=== PATIENT | female | born 1945 | race Caucasian/White ===

== ENCOUNTER 2017-03-10 10:38 | Emergency (ER) | payer MEDICARE ==
[~2017-03-10] VITALS: Ht 175.3 cm; Wt 113.2 kg
[2017-03-10] VITALS (7 sets, daily range): BP systolic 107–135; BP diastolic 72–78; PULSE 89–131; RESP 15–19; O2SAT 94–96
--- NOTE | 2017-03-10 10:47 | ED.REPORT ---
HPI-Chest Pain 40 and Over Date of Service March 10, 2017 ED Provider: Dr. Bautista Pt is a 71 year old female with a hx of afib on Warfarin, HTN and DM presenting to the ED complaining of chest pain onset 0230 this morning. Associated symptoms include palpitations, SOB, dyspnea on exertion. She reports that Dr. Lomeli , her nurse practitioner, usually tells her to take an extra dose of Flecainide when she has an episode of palpitations but she did not do that today. She states that she has had episodes of chest heaviness since 3 days ago. This episode of afib feels similar to her other previous episodes. Usually, the episodes of afib are not as close together. She states that they are usually weeks apart. The pt has been under emotional stress lately, due to packing up their home to move into a senior home. Her regular dose of Flecainide is 100mg in the morning and 100mg at night. Nursing Notes Stated Complaint: CHEST PAIN Chief Complaint: Chest pain Nursing Notes Reviewed: Yes Allergies: Coded Allergies: Tetanus and Diphtheria Toxoid (Verified Allergy, Unknown, 03/10/17) bacitracin (Verified Allergy, Unknown, 03/10/17) bacitracin zinc (Verified Allergy, Unknown, 03/10/17) gramicidin D (Verified Allergy, Unknown, 03/10/17) neomycin sulfate (Verified Allergy, Unknown, 03/10/17) polymyxin B (Verified Allergy, Unknown, 03/10/17) polymyxin B sulfate (Verified Allergy, Unknown, 03/10/17) Scheduled Flecainide Acetate (Flecainide Acetate) 150 Mg Tablet 150 MG PO BID Metoprolol Tartrate (Metoprolol Tartrate) 75 Mg Tablet 75 MG PO BID General Time Seen by MD: 10:46 Chief Complaint Chest pain Hx Obtained From: Patient Arrived By: Walk-in Sudden in Onset?: No Onset Occurred: 3 days ago Symptom Duration: Since onset Quality: Heaviness, Painful Severity: Current: Mild Severity: Maximum: Moderate Recent Healthcare: No recent doctor visit, No recent hospitalization Similar Sx Previous: Yes Past Medical History Past Medical History Paroxysmal afib on Warfarin GERD DM HTN Hypothyroidism Past Surgical History denies Social History Alcohol Use: Denies alcohol use Drug Use: Denies drug use Ambulatory Status Independent Review of Systems Respiratory: Reports: Dyspnea on exertion, Shortness of breath Cardiovascular: Reports: Chest pain, Palpitations Complete sys rev & neg: except as marked. Physical Exam Initial Vital Signs Vital Signs (First) Date Time Temp Pulse Resp B/P Pulse Ox O2 Delivery O2 Flow Rate FiO2 03/10/17 10:49 36.8 118 19 112/77 96 Room Air Initial VS: Reviewed Head / Eyes: Atraumatic, Normocephalic, PERRL ENT: Mucous membranes moist, Conjunctiva normal, No scleral icterus Neck: Supple, Non-tender, Full range of motion Extremities: Vascular intact, Neuro intact, No swelling, No tenderness Skin: Warm, Dry, No cyanosis Neurologic: Alert, Oriented, Nonfocal Psychiatric: Mood/affect normal, Behavior normal, Normal thought content General/Constitutional: Awake, Alert, No acute distress, Well appearing Respiratory / Chest: Breath sounds NL, Breath sounds = bilat, No respiratory distress, No rales, No rhonchi, No wheezing, No stridor, No chest tenderness Cardiovascular: No murmurs, No rubs Heart Rate / Rhythm: Positive: Irreg irregular rhythm, Tachycardia Interpretation & Diagnostics Lab Results Interpretation Result Diagram: 03/10/17 1139 03/10/17 1139 Test 03/10/17 11:39 White Blood Count 8.2th/mm3 (3.8-10.1) Red Blood Count 5.17mil/mm3 (3.90-5.20) Hemoglobin 14.7g/dL (12.0-15.6) Hematocrit 44.0% (35.0-46.0) Mean Corpuscular Volume 85.1fL (81-100) Mean Corpuscular Hemoglobin 28.4pg (27.0-35.0) Mean Corpuscular Hemoglobin Concent 33.4% (32.0-37.0) Red Cell Distribution Width 14.3% (12.3-15.4) Platelet Count 223bil/L (150-400) Neutrophils (%) (Auto) 63.4% (40-74) Lymphocytes (%) (Auto) 18.8% (14-46) Monocytes (%) (Auto) 11.4% (4-12) Eosinophils (%) (Auto) 4.5% (0-5) Basophils (%) (Auto) 1.0% (0-3) Prothrombin Time 18.5sec (8.1-12.5) Prothromb Time International Ratio 1.71ratio Sodium Level 135mEq/L (134-144) Potassium Level 4.3mEq/L (3.5-5.2) Chloride Level 97mEq/L (97-108) Carbon Dioxide Level 22mmol/L (18-29) Blood Urea Nitrogen 20mg/dL (8-27) Creatinine 0.61mg/dL (0.57-1.00) Estimat Glomerular Filtration Rate 138mL/min (>59) Glucose Level 178mg/dL (60-99) Calcium Level 9.5mg/dL (8.5-10.1) Magnesium Level 1.5mg/dL (1.6-2.6) Total Bilirubin 0.7mg/dL (0.0-1.2) Aspartate Amino Transf (AST/SGOT) 53U/L (0-50) Alanine Aminotransferase (ALT/SGPT) 69U/L (0-32) Alkaline Phosphatase 72U/L (25-165) Troponin T 0.010ug/L (0.0-0.011) Total Protein 7.4g/dL (6.4-8.4) Albumin 4.2g/dL (3.4-5.0) ECG Interpretation ECG Interpretation: Afib, RBBB. Time: 11:02 Interpreted by: ED physician Abnormal Rate: 120 (123) X-Ray Chest Interpretation Chest Xray Interpretation: IMPRESSION: Stable chest. No acute cardia pulmonary process is evident. Dictated by: Davy Walters M.D. on 03/10/2017 at 11:19 Interpretation / Wet Read by: Interpret - Radiologist Re-Eval/Medical Decision Med Decision/Clinical Course Paroxysmal A. fib with multiple recent episodes, not a candidate for cardioversion due to subtherapeutic INR. Patient received multiple IV doses of metoprolol as well as oral flecainide which resulted in better control without rhythm conversion. Cardiology is consulted and agrees and recommends increasing the flecainide and metoprolol and close outpatient follow-up. Return and follow-up precautions given. Time of Eval: 12:04 Patient Status: Condition improved Re-Evaluation/Progress Note: Pt given Flecainide, condition improved. Time of Eval: 13:30 Patient Status: Condition improved Re-Evaluation/Progress Note: Discussed plan for depart. Pt understands and agrees with plan. Consultation #1: Referral / Consult Name: Anmol Shipman MD Consulted With: Cardiology Call Returned at: 12:19 Milk Bottler: Will see patient, Agrees with plan Consultation #2: Referral / Consult Name: Anmol Shipman MD Call Returned at: 13:34 Milk Bottler: Agrees with plan Note: Increase metoprolol and give flecainide BID. Counseled Regarding: Diagnosis, Lab results, Need for follow-up, When/why to return to ED Discharge & Departure Primary Impression: Paroxysmal atrial fibrillation Disposition: Home Discharge Condition All VS Reviewed: Yes Condition: Improved Additional Instructions: Your INR is subtherapeutic at 1.7. You are in A. fib. Increase your metoprolol to 75 mg twice a day. Increase your flecainide to 150 mg twice a day. Call your nurse practitioner today for a close follow-up appointment. Return to the ER as needed for concerning symptoms. Referrals: Katherine Snell MD (PCP) Anmol Shipman MD Crit Care Except Billable Proc Time Spent: 30-74 minutes Services Performed: Patient management by me, Time spent at bedside, Reviewing test results Critical Care Notes: See MDM Scribe Attestation Portions of this note were transcribed by Lucia Foster. I, Dr. Bautista personally performed the history, physical exam and medical decision-making; I reviewed and confirmed the accuracy of the information in the transcribed note. Signed by: Nicolette Malone, 03/10/2017 at 1344. copies to: Anmol Shipman MD; Katherine Snell MD, Timothy S DO March 10, 2017 10:46 LUCIA FOSTER March 10, 2017 11:02
[2017-03-10] MEDS ORDERED: MeTOProlol 1 mg/mL 5 mL Inj IVPUSH ONE (11:20)
[2017-03-10 11:44] LABS: EOSINOPHILS % (AUTO) 4.5 % (0-5); MONOCYTES % (AUTO) 11.4 % (4-12); Mean Corpuscular Hemoglobin 28.4 pg (27.0-35.0); Mean Corpuscular Volume 85.1 fL (81-100); NEUTROPHILS % (AUTO) 63.4 % (40-74); Platelet Count 223 bil/L (150-400)
[2017-03-10 11:58] LABS: INR 1.71 ratio
[2017-03-10 12:07] LABS: TROPONIN T 0.01 ug/L (0.0-0.011)
[2017-03-10 12:18] LABS: Magnesium 1.5 mg/dL (1.6-2.6)
--- NOTE | 2017-03-10 12:21 | DRSVH ---
PROCEDURE: X-RAY CHEST ONE VIEW, PORTABLE ([id number]) INDICATIONS: dysrythmia TECHNIQUE: One view of the chest was acquired. COMPARISON: [facility], CR, XR CHEST 2VW, 01/24/2016, 12:29. FINDINGS: Surgical changes and devices: None. Lungs and pleura: No pleural effusions or pneumothorax. Lungs are clear. Mild elevation of the rig ht diaphragm is present. Mediastinum: Mediastinal contours appear normal. Heart size is normal. Bones and chest wall: No suspicious bony lesions. Overlying soft tissues appear unremarkable. IMPRESSION: Stable chest. No acute cardia pulmonary process is evident. Dictated by: Davy Walters M.D. on 03/10/2017 at 11:19 Approved by: Davy Walters M.D. on 03/10/2017 at 11:20
[2017-03-10] MEDS: MeTOProlol 1 mg/mL 5 mL Inj IVPUSH SCH ×2 (12:29→13:03)
[2017-03-10] MEDS ORDERED: Magnesium Sulf 2 Gm/50mL Water 2 GM in IV Premix 1 EACH IV ONE (12:40)
[2017-03-10] MEDS ORDERED: METO75TA PO (13:38)
[2017-03-10] MEDS ORDERED: FLEC150T PO (13:38)
== END 2017-03-10 13:38 | disposition home or self-care (01) ==
LOC: SED 10:38
DX: I48.0 Paroxysmal atrial fibrillation (principal); K21.9 Gastro-esophageal reflux disease without esophagitis; E11.9 Type 2 diabetes mellitus without complications; I10 Essential (primary) hypertension; E03.9 Hypothyroidism, unspecified; Z79.01 Long term (current) use of anticoagulants; Z88.1 Allergy status to other antibiotic agents; Z88.8 Allergy status to other drugs, medicaments and biological substances